=== PATIENT | female | born 1950 | race Caucasian/White ===

== ENCOUNTER 2018-08-26 13:55 | Observation (INO) ==
--- NOTE | 2018-08-26 09:05 | Discharge Summary ---
<Laura Quinones - Last Filed: 08/26/18 09:10> Orders not resulted at time of discharge: Pending orders 08/26/18 01:00 XR knee RT 1-2V [XR] Routine Hemoglobin and Hematocrit [HEME] Routine Date of Encounter: 08/26/18 - Hospital Course Hospital course: Ms. Michele is a 67 year old female - Time Spent with Patient Total time spent providing and/or coordinating discharge services: - Discharge Medications Prescriptions: New Aspirin Enteric Coated [Aspirin EC] 325 mg PO BID 10 Days #20 tablet. Docusate Sodium [Colace] 100 mg PO BID 5 Days #10 capsule HYDROcodone BIT/Homatropine [Hycodan] 5 mg PO Q6H PRN 5 Days #20 tablet PRN Reason: Severe Pain Continued predniSONE [PredniSONE] 10 mg PO DAILY Folic Acid 1 mg PO DAILY Omeprazole [PriLOSEC] 20 mg PO DAILY Lisinopril [Zestril] 10 mg PO DAILY Cholecalciferol (D-3) [Vitamin D] 1,000 unit PO DAILY Sulfasalazine [Azulfidine] 500 mg PO BID Discontinued Oxaprozin [Daypro] 600 mg PO BID Home Medications: Cholecalciferol (D-3) [Vitamin D] 1,000 unit PO DAILY 04/06/16 [History] Folic Acid 1 mg PO DAILY 04/06/16 [History] Lisinopril [Zestril] 10 mg PO DAILY 04/06/16 [History] Omeprazole [PriLOSEC] 20 mg PO DAILY 04/06/16 [History] predniSONE [PredniSONE] 10 mg PO DAILY 04/06/16 [History] Aspirin Enteric Coated [Aspirin EC] 325 mg PO BID 10 Days #20 tablet. 08/26/18 [Rx] Docusate Sodium [Colace] 100 mg PO BID 5 Days #10 capsule 08/26/18 [Rx] Sulfasalazine [Azulfidine] 500 mg PO BID 08/26/18 [History] HYDROcodone BIT/Homatropine [Hycodan] 5 mg PO Q6H PRN 5 Days #20 tablet 08/29/18 [Rx] Allergies/Adverse Reactions: Allergy/AdvReac Type Severity Reaction Status Date / Time Hydroxychloroquine Allergy Itching Verified 08/26/18 16:35 oxycodone [From Percocet] AdvReac Itching Verified 08/26/18 16:35 Primary care physician: Florian Garza MD - Patient Status Disposition: Home, Self-Care Condition: Good - Ambulatory Orders Ambulatory Orders: Renal Function Panel [CHEM] Time Frame: 1 Week, Facility: [facility], Location: Lab Renal Function Panel [CHEM] Time Frame: 6 Weeks, Facility: [facility], Location: Lab - Discharge Instructions Follow Up With: Florian Garza MD [Primary Care Provider] - <Laura Salazar - Last Filed: 08/29/18 13:37> - NOTES TO OUTPATIENT PROVIDER Notes to Outpatient Provider: Will repeat BMP in 1 week and 6 weeks. Follow up with Nephrology in 6 weeks. AVOID NSAIDs. Follow up with rheumatology for RA management Orders not resulted at time of discharge: Pending orders 08/26/18 01:00 XR knee RT 1-2V [XR] Routine Hemoglobin and Hematocrit [HEME] Routine Date of Encounter: 08/29/18 Time of Encounter: 11:45 - Discharge Diagnosis (1) Status post total right knee replacement Priority: Primary Status: Acute (2) Osteoarthritis of right knee Priority: Primary Status: Chronic Qualifiers: Osteoarthritis type: unspecified Qualified Code(s): M17.11 - Unilateral primary osteoarthritis, right knee (3) CKD (chronic kidney disease) Priority: Secondary Status: Chronic Qualifiers: Chronic kidney disease stage: unspecified stage Qualified Code(s): N18.9 - Chronic kidney disease, unspecified (4) HTN (hypertension) Priority: Secondary Status: Chronic Qualifiers: Hypertension type: unspecified Qualified Code(s): I10 - Essential (primary) hypertension (5) Rheumatoid arthritis Priority: Secondary Status: Chronic Qualifiers: Rheumatoid arthritis location: unspecified site Qualified Code(s): M05.9 - Rheumatoid arthritis with rheumatoid factor, unspecified (6) GERD (gastroesophageal reflux disease) Priority: Secondary Status: Chronic Qualifiers: Esophagitis presence: esophagitis presence not specified Qualified Code(s): K21.9 - Gastro-esophageal reflux disease without esophagitis (7) Obesity (BMI 30.0-34.9) Priority: Secondary Status: Chronic - Hospital Course Hospital course: Ms. Michele is a 67 year old female status post right TKR 7/15/19 with medical history of CKD, HTN, RA, GERD, obesity. She developed SHANNEN on CKD during admission likely worsened by postoperative anemia. Nephrology was consulted with recommendations for strict I&Os and to stop NSAIDs. She did receive 1 unit RBC transfusion and labs improved today. She is stable for discharge home at this time. She will have repeat BMP in 1 week and [facility] She will also have follow up with rheumatology as she needs to stop her daypro. She will also follow up with [facility] office next week for reevaluation of the knee. PCR - POD#3 s/p right TKR 08/26/18 Patient seen at bedside, without complaints. A&O x 3 Afebrile, vital signs stable. dressings c/d/i with minimal bleeding noted. no calf tenderness to palpation. good dorsiflexion of foot. Labs reviewed. H/H -8.2/25.8, improved, asymptomatic. received 1 unit RBC transfusion on 08/28. CKD - appreciate nephrology consult and recommendations. strict I/O, avoid nephrotoxins, renal dose medications. Pain control: adequate Participating in PT. All questions and concerns addressed. Educated on use of incentive spirometer. Encouraged ambulation and proper hydration. Patient educated on post-operative restrictions and post-operative care. Assessment and plan: Continue with postoperative care Discharge plan: Home, plan for outpatient therapy, DC today - Time Spent with Patient Total time spent providing and/or coordinating discharge services: Date of admission: 08/26/18 Primary care physician: Florian Garza MD Consults: 08/26/18 20:30 Consult to Nutrition [CONS] Routine Comment: Consulting Provider: NUTRITION Reason for Dietary Consult: Other Other:: Proper nutrition to facilitate wound healing Consult to Orthopedic Navigator [CONS] [CONS] Routine Consult to Physical Therapy [CONS] Routine Comment: Evaluate, develop and impliment POC Reason for Consult: post knee surgery Does patient have active BEDREST order?: No Is patient medically & hemodynamically stable?: Yes Consult to Chief Talent Officer [CONS] Routine Reason for SW Consult: post op joint replacement RT Post Op Consult [CONS] Routine 08/27/18 08:51 Consult to Nephrology [CONS] Routine Consulting Provider: [facility] [place]/JOHANNA/NOAH/MIKEY Reason for Consult: h/o CKD, postop monitoring Time Notified: 08:52 Call Completed: Yes 08/28/18 12:50 Consult to Nephrology [CONS] Routine Consulting Provider: Marc Pyle Reason for Consult: SHANNEN on CKD Time Notified: 12:51 Call Completed: Yes Labs on day of discharge: Short CBC 08/29/18 Range/Units 00:51 Hgb 8.2 L (11.5-15.4) g/dL Hct 25.8 L (35.3-44.9) % BMP 08/29/18 Range/Units 06:47 Sodium 144 (136-145) mEq/L Potassium 4.2 (3.5-5.1) mEq/L Chloride 109 H (98-107) mEq/L Carbon Dioxide 27 (23-29) mEq/L BUN 25 H (8-23) mg/dL Creatinine 1.32 H (0.60-1.20) mg/dL Glucose 90 (70-105) mg/dL Calcium 8.7 (8.6-10.3) mg/dL Urine 08/29/18 Range/Units 11:59 Urine Color Yellow (Yellow) Urine Clarity Clear (Clear) Urine pH 6.0 (5.0-8.0) pH Units Ur Specific [place] 1.011 (1.010-1.025) Urine Protein Negative (Neg-Trace) mg/dL Urine Glucose (UA) Normal (Normal) mg/dL - Impressions 08/26/18 20:30 Consult to Nutrition [CONS] Routine Comment: Consulting Provider: NUTRITION Reason for Dietary Consult: Other Other:: Proper nutrition to facilitate wound healing Consult to Orthopedic Navigator [CONS] [CONS] Routine Consult to Physical Therapy [CONS] Routine Comment: Evaluate, develop and impliment POC Reason for Consult: post knee surgery Does patient have active BEDREST order?: No Is patient medically & hemodynamically stable?: Yes Consult to Chief Talent Officer [CONS] Routine Reason for SW Consult: post op joint replacement RT Post Op Consult [CONS] Routine 08/27/18 08:51 Consult to Nephrology [CONS] Routine Consulting Provider: Marc Pyle Reason for Consult: h/o CKD, postop monitoring Time Notified: 08:52 Call Completed: Yes 08/28/18 12:50 Consult to Nephrology [CONS] Routine Consulting Provider: Marc Rabago/JOHANNA/NOAH/MIKEY Reason for Consult: SHANNEN on CKD Time Notified: 12:51 Call Completed: Yes - Patient Status Functional capacity at discharge: uses cane/walker Overall status at discharge: patient is progressing back to baseline - Diet and Activity Activity: ambulate only with your walker, as per physical therapy Diet: advance to your usual diet
[~2018-08-26 13:55] MED LIST: Ropivacaine/PF 0.5% 24.62 ML, EPINEPHrine 0.25 MG, Ketorolac 15 MG, Water for inj. (ste... IR ONE
--- NOTE | 2018-08-26 14:21 | History & Physical Report ---
Date of Encounter: 08/26/18 Time of Encounter: 14:20 24 Hour HP Update - Instructions Instructions: If the History and Physical is less than 30 days old and was completed prior to A.M. admission and or procedure and has NOT been updated on calendar day of procedure please complete this update prior to performing procedure. - Update Patient reports changes in Medical Condition: No Changes in examination, assessment, or condition: No Changes in Medication: No Preop tests/diagnostics Reviewed: Yes Surgery Remains Indicated: Yes Consent for Planned Operative Procedure(s) Verified: Yes - Pre-Operative Checklist Preoperative Checklist Indicated: No Prophylactic Antibiotic Ordered: Yes Is VTE Prophylaxis Indicated?: Yes
[2018-08-26] MEDS ORDERED: CeFAZolin Syr 2,000MG/20 ML 2,000 MG/20 ML SYRINGE IVPB ONE (14:24)
[2018-08-26] MEDS ORDERED: Ringers Solution, Lactated 1,000 ML IVC SCH (14:30)
--- NOTE | 2018-08-26 14:30 | Anesthesia Evaluation PreOp ---
Date of Encounter: 08/26/18 Time of Encounter: 14:28 - Past History Planned Operation: RIGHT TKA Cardiac History: HTN Pulmonary History: Denies Any Significant HX HEALTHCARE ANALYST History: Denies Any Significant HX Other Medical History: Renal (CKD3), GERD, Other (RHEUMATOID ARTHRITIS, ANEMIA) Anesthesia History: No Prior Anesthetic Complications, Past Anesthesia Alcohol Use: none Drug use: none Medications and Allergies Cholecalciferol (D-3) [Vitamin D] 1,000 unit PO DAILY 04/06/16 [History] Folic Acid 1 mg PO DAILY 04/06/16 [History] Lisinopril [Zestril] 10 mg PO DAILY 04/06/16 [History] Omeprazole [PriLOSEC] 20 mg PO DAILY 04/06/16 [History] Oxaprozin [Daypro] 600 mg PO BID 04/06/16 [History] Tramadol HCl [Ultram] 50 mg PO BID PRN 04/06/16 [History] predniSONE [PredniSONE] 10 mg PO DAILY 04/06/16 [History] sulfaSALAzine [Sulfazine] 500 mg PO BID 04/06/16 [History] Aspirin Enteric Coated [Aspirin EC] 325 mg PO BID 10 Days #20 tablet. 08/26/18 [Rx] Docusate Sodium [Colace] 100 mg PO BID 5 Days #10 capsule 08/26/18 [Rx] HYDROcodone BIT/Homatropine [Hycodan] 1 mg PO Q6HR 5 Days #20 tablet 08/26/18 [Rx] Allergy/AdvReac Type Severity Reaction Status Date / Time Hydroxychloroquine Allergy Itching Verified 08/26/18 14:23 acetaminophen [From Percocet] AdvReac Itching Verified 08/26/18 14:23 oxycodone [From Percocet] AdvReac Itching Verified 08/26/18 14:23 - Meds/Allergy Pre-op Review Medications Reviewed: Yes Allergies Reviewed: Yes Beta Blockers on Current Med List: No Anesthesia Exam REVIEWED Weight: 76 KG - BMI 32 NPO (# of Hours): 8 - HEENT Mallampati: I Teeth: Edentulous Denture Type: Upper: Complete, Lower: Complete - Cardiac Rhythm: Regular - Pulmonary Breath Sounds: bilateral Clear Anesthesia Assess/Plan ASA Score: 3 Anesthetic Plan: Regional Nerve Block, Spinal Monitoring Plan: Standard Monitors Recovery Plan: PACU
[2018-08-26] MEDS ORDERED: Acetaminophen IV 1,000 MG/100 ML INFUS..BTL IVPB ONE (14:32)
[2018-08-26] MEDS ORDERED: traMADol 50 MG TABLET PO ONE (14:32)
[2018-08-26] MEDS ORDERED: *HR* Promethazine 25 MG/ML VIAL IVP PRN ×2 (14:37→20:30)
[2018-08-26] MEDS ORDERED: *HR* HYDROmorphone (PF) 1 MG/ML SYRINGE IVP PRN (14:37)
[2018-08-26] MEDS ORDERED: *HR* Midazolam HCl 2 MG/2 ML VIAL ONE ×2 (15:44→16:19)
[2018-08-26] MEDS ORDERED: *HR* FentaNYL (PF) 100 MCG/2 ML VIAL ONE ×2 (15:44→16:19)
[2018-08-26] MEDS ORDERED: Propofol 500 MG/50 ML INFUS..BTL ONE (15:47)
[2018-08-26] MEDS ORDERED: ROPIVACAINE/PF/NS 0.25% 1 EACH SYRINGE INTRAART ONE (15:59)
[2018-08-26] MEDS ORDERED: Lidocaine -MPF 1% 5 ML AMPUL ONE (16:19)
[2018-08-26] MEDS ORDERED: Ethanol\\Acetic Acid\\Na Ace\\Ben 1,000 ML IRRIG.SOLN IR ONE (16:39)
--- NOTE | 2018-08-26 16:51 | Anesthesia Procedures ---
Date of Encounter: 08/26/18 Time of Encounter: 16:25 Procedures: Anesthesia - Epidural/Spinal Patient ID/Chart reviewed: Yes Patient examined: Yes Consent Obtained: Yes Supplemental Oxygen: Nasal Cannula Supplemental Oxygen Rate (L/min): 4 Sedation: Versed (mg): 1 Sedation: Fentanyl (mcg): 50 Site Prep: Aseptic Technique, Sterile prep and drape, Povidone-Iodine 1% Patient position: upright Local Anesthetic: Lidocaine 1% Amount of Local Anesthetic used: 3 Interspace Used: L3-L4 Blood: No CSF: Yes Paresthesia: No Spinal Needle Gauge: 25 (pencan) Spinal Dose: Bupivicaine 0.5% 2ml Procedure: Intrathecal dose administered 2nd pass in upright position. 1st pass could not pass to intrathecal space. Successful at L3-L4. CSF noted on aspiration. VSS throughout. Vitals + FHT's: Vital Signs Temperature 98.9 F 08/26/18 14:36 Pulse Rate 107 08/26/18 14:36 Respiratory Rate 17 08/26/18 14:36 Blood Pressure 176/76 08/26/18 14:36 O2 Sat by Pulse Oximetry 99 08/26/18 14:36 Temperature 98.9 F 08/26/18 14:36 Pulse Rate 96 08/26/18 16:05 Respiratory Rate 18 08/26/18 16:05 Blood Pressure 140/75 08/26/18 16:05 O2 Sat by Pulse Oximetry 98 08/26/18 16:05 - Nerve Block Procedure Date: 08/26/18 Time: 16:35 Allergies/Adv Reactions: hydroxychloroquine, acetaminophen, oxycodone Pre-op Diagnosis: Right knee osteoarthritis Surgical Procedure: right total knee arthroplasty Checklist: Correct Patient Identifier, Correct procedure, History checked Correct side: Right Blood Thinner: No Monitor Applied: EKG, BP, Pulse Oximetry Supplemental Oxygen via Nasal Cannula (L/min): 4 Indication: Post Op Analgesia Pre-op Neuro Deficits: No Block Type: Other (adductor canal ) Catheter placed: No Sterile Technique: Yes Ultrasound used: Yes Anatomy identified: Yes Visual spread of Local: Yes Neuro Stimulation: No Blood on Needle Aspiration: No Smooth Injection of Local: Yes Pain with Injection of Local: No Prep: Chlorhexadine Needle: 22 x 50 mm Stimuplex Local: Ropivacaine (0.25% bupivicaine ) Volume (cc): 10 Number of Attempts: 1 Complications: None/effective block Vitals: Vital Signs Temperature 98.9 F 08/26/18 14:36 Pulse Rate 107 08/26/18 14:36 Respiratory Rate 17 08/26/18 14:36 Blood Pressure 176/76 08/26/18 14:36 O2 Sat by Pulse Oximetry 99 08/26/18 14:36 Temperature 98.9 F 08/26/18 14:36 Pulse Rate 96 08/26/18 16:05 Respiratory Rate 18 08/26/18 16:05 Blood Pressure 140/75 08/26/18 16:05 O2 Sat by Pulse Oximetry 98 08/26/18 16:05
[2018-08-26] MEDS ORDERED: Tranexamic Acid 1,000 MG/10 ML VIAL ONE (17:12)
[2018-08-26] MEDS ORDERED: Dexamethasone 4 MG/ML VIAL ONE (17:46)
[2018-08-26] MEDS ORDERED: Ondansetron 4 MG/2 ML VIAL ONE (17:47)
--- NOTE | 2018-08-26 17:49 | Orthopedic Operative Note ---
Date of procedure: 08/26/18 Pre-op diagnosis: Right knee arthritis Post-op diagnosis: same Procedure: Procedure: Right robotic-assisted Total knee replacement Estimated blood loss: 200 cc Hardware: Metal and polyethylene replacement. [place] Femur: 3 Tibia: 2 TS insert: 11 Patella: 36 Exam Under anesthesia: 14 degree flexion contracture 14 degree varus as calculated by the robot full flexion and no instability Procedural Notes: Grade 4 arthritic changes all 3 compartments. Operative procedure: The patient was brought to the operating room and placed on the operating room table. After general anesthesia was administered the operative knee was examined. Findings were noted in the exam under anesthesia. The operative extremity was prepped and draped in sterile surgical fashion. The patient received IV antibiotics prior to skin incision. A standard midline incision was made centered over the patella. The incision was made through the skin and subcutaneous tissue. A medial parapatellar tendon approach was performed. Care was taken to preserve tissue along the medial aspect of the patella. And to protect the patella tendon. The deep MCL was released off the medial tibia. The infra patella fat pad was excised. The patella was everted and cut was made at the level of the insertion of the quadriceps and patella tendon. The patella was sized the guide was seated and the lug holes are drilled. Knee was brought into flexion. Patient noted to have grade 4 arthritic changes all 3 compartments. Steinmann pins were placed in the tibia and the femur for the tibial and femoral arrays respectively. Checkpoints were also placed in the tibia and the femur for calculation purposes. The knee including the femur and the tibial registered. Osteophytes, ACL and PCL were excised at this point. Extension and flexion were assessed with a valgus stress components were adjusted on the computer to balance the knee. Femoral cuts were made first with robotic assistance, these included the anterior cut posterior cuts chamfer cuts. Tibial cut was then performed with robotic assistance as well. Bone fragments were removed, as well as the medial and lateral meniscus. The size 3 femoral guide was seated box cut was made lug holes are drilled. The size 2 tibial tray was seated and prepared with the fin cutter. Trial reduction with the 11 TS Bernadine revealed extension of 0 degree and 2 degrees varus full flexion. No varus valgus instability. Trial reduction revealed excellent patella tracking. All trial components were removed all bony surfaces were irrigated. The Tibia was seated followed by the femur, The selected Bernadine size was seated and secured patella. Patient had similar findings for motion and stability. The knee was closed by the PA. The knee was then irrigated out with 2 L of pulse irrigation. The extensor mechanism was closed with #2 FiberWire suture and #2 PDS suture. The subcutaneous tissue was then irrigated and closed deep with #1 PDS suture superficially with 0 PDS suture and skin was closed with zip tie The patient was then placed in a sterile dressing and a postoperative brace extubated and transferred to recovery room in stable condition. Anesthesia: spinal Surgeon: Danyel Chavez Was there an assistant professor sculpture present: Yes Photolith Operator: Laura Quinones Estimated blood loss (cc): 200 Condition: stable Disposition: PACU
--- NOTE | 2018-08-26 19:04 | Anesthesia Evaluation Post Op ---
Date of Encounter: 08/26/18 Time of Encounter: 19:15 - Vital Signs Vital Signs: Vital Signs/O2 Sat/Glucose, Most Current Temp Pulse Resp BP Pulse Ox 08/26/18 19:02 84 18 146/68 98 08/26/18 18:52 81 16 131/76 95 08/26/18 18:42 97.6 F 88 16 136/83 98 08/26/18 16:05 96 18 140/75 98 - Lungs Lungs: Clear Ascult./Percussion - Airway Airway: Non-obstructed - Cardiovascular Regular Rate - Mental Status Mental Status: Alert & Oriented, Answers Appropriately - Pain Pain Scale: 0 - Nausea Vomiting Nausea Vomiting: Not Present - Hydration Hydration: Ice chips - Discharge PostOp Status: Transfer Patient to floor (moving lower extremities)
[2018-08-26 19:21] LABS: Hematocrit 29.5 % (35.3-44.9); Hemoglobin 9.2 g/dL (11.5-15.4)
[2018-08-26] MEDS ORDERED: traMADol 50 MG TABLET PO PRN (20:30)
[2018-08-26] MEDS ORDERED: HYDROcodone BIT/Homatropine 5 MG TABLET PO PRN (20:30)
[2018-08-26] MEDS ORDERED: *HR* HYDROcodone/Acet 10/325 mg TABLET PO PRN (20:30)
[2018-08-26] MEDS ORDERED: MOM Conc 10 ML UD.LIQ PO PRN (20:30)
[2018-08-26] MEDS ORDERED: Sennosides 8.6 MG TABLET PO PRN (20:30)
[2018-08-26] MEDS ORDERED: Ondansetron 4 MG/2 ML VIAL IVP PRN (20:30)
[2018-08-26] MEDS ORDERED: Temazepam 15 MG CAPSULE PO PRN (20:30)
[2018-08-26] MEDS ORDERED: Naloxone 0.4 MG/ML INJ IVP PRN (20:30)
[2018-08-26] MEDS: Ringers Solution, Lactated 1,000 ML IVC SCH (20:30)
[2018-08-26] MEDS ORDERED: OXAPROZIN 600 MG PO SCH (21:00)
[2018-08-26] MEDS: *HR* Enoxaparin 30 MG/0.3 ML SYRINGE SQ SCH (23:18)
[2018-08-26] MEDS: Gabapentin 300 MG CAPSULE PO SCH (23:19)
[2018-08-26] MEDS: sulfaSALAzine 500 MG TABLET PO SCH (23:19)
[2018-08-26] MEDS: Ascorbic Acid 500 MG TABLET PO SCH (23:37)
[2018-08-27] MEDS: Gabapentin 300 MG CAPSULE PO SCH ×3 (03:02→14:40)
[2018-08-27] MEDS: *HR* Enoxaparin 30 MG/0.3 ML SYRINGE SQ SCH (06:03)
--- NOTE | 2018-08-27 06:19 | Orthopedics Progress Note ---
Date of Encounter: 08/27/18 Time of Encounter: 06:18 - Assessment and Plan (1) Acute blood loss anemia Current Visit: Yes Status: Acute Subjective Interval history: Patient was seen this morning doing well without complaints. Afebrile vital signs stable. Operative extremity: Neurovascularly intact Dressing clean dry and intact Calves nontender Assessment and plan: Continue with postoperative care Hemoglobin 9.2 Objective Vital signs: Vital Signs Temp Pulse Pulse Resp BP Pulse Ox 08/27/18 04:48 98.5 F 76 17 135/71 98 08/26/18 23:46 97.9 F 74 15 153/75 93 08/26/18 22:35 98.5 F 76 16 148/88 95 08/26/18 21:40 98.8 F 72 14 128/86 95 08/26/18 20:40 98.3 F 79 14 130/76 95 08/26/18 20:14 97.6 F 70 17 132/78 97 08/26/18 20:10 98.5 F 74 16 140/82 95 08/26/18 19:35 98.4 F 78 16 135/78 95 08/26/18 19:30 76 08/26/18 19:22 98.1 F 68 16 131/65 97 08/26/18 19:12 98.8 F 79 18 131/66 97 08/26/18 19:02 84 18 146/68 98 08/26/18 18:52 81 16 131/76 95 08/26/18 18:42 97.6 F 88 16 136/83 98 08/26/18 16:05 96 18 140/75 98 08/26/18 14:36 98.9 F 107 17 176/76 99 Intake and Output 08/26/18 08/26/18 08/27/18 15:59 23:59 07:59 Intake Total 100 / 100 Output Total 200 / 200 Balance -100 / -100 Intake: IV Fluids 100 / 100 Ancef 2,000 MG In 0.9 % Sodium 100 / 100 Chloride 100 ML @ 200 mls/hr IVPB Q8H [facility] Rx#:[id number] Output: Estimated Blood Loss 200 / 200 Other: Weight 76.204 kg 76.1 kg Patient Weight 08/27/18 23:59 Weight 76.1 kg - Labs CBC & BMP: 08/26/18 18:58 Labs: Abnormal lab results Hgb 9.2 g/dL (11.5-15.4) L 08/26/18 18:58 Hct 29.5 % (35.3-44.9) L 08/26/18 18:58 Consult Discharge Plan - Plan Referrals: Florian Garza MD [Primary Care Provider] - Prescriptions: Aspirin Enteric Coated [Aspirin EC] 325 mg PO BID 10 Days #20 tablet. Docusate Sodium [Colace] 100 mg PO BID 5 Days #10 capsule HYDROcodone BIT/Homatropine [Hycodan] 1 mg PO Q6HR 5 Days #20 tablet
[2018-08-27 07:18] LABS: Hematocrit 25.5 % (35.3-44.9); Hemoglobin 8.1 g/dL (11.5-15.4); Immature Granulocytes % 0.3 % (0-4); Lymphocytes # 0.8 K/mcL (0.6-4.6); Lymphocytes % 7.8 %; Mean Corpuscular HGB Conc 31.8 g/dL (31.6-35.5); Mean Corpuscular Hemoglobin 29.5 pg (28.0-33.3); Mean Corpuscular Volume 92.7 fL (83.0-100.0); Mean Platelet Volume 11.2 fL (9.4-12.4); Monocytes # 0.8 K/mcL (0.0-1.3); Monocytes % 7.6 %; Neutrophils # 8.4 K/mcL (1.6-8.9); Platelet Count 187 K/mcL (140-400); Red Blood Count 2.75 M/mcL (3.82-4.97); Segmented Neutrophils % 84.3 %; White Blood Count 9.9 K/mcL (4.3-11.1)
[2018-08-27 07:41] LABS: Calcium 8.5 mg/dL (8.6-10.3); Potassium 4.4 mEq/L (3.5-5.1)
[2018-08-27] MEDS: predniSONE 10 MG TABLET PO SCH (09:41)
[2018-08-27] MEDS: Ascorbic Acid 500 MG TABLET PO SCH ×2 (09:41→17:43)
[2018-08-27] MEDS: Cholecalciferol (D-3) 1,000 UNIT (25MCG) TABLET PO SCH (09:41)
[2018-08-27] MEDS: sulfaSALAzine 500 MG TABLET PO SCH (09:41)
[2018-08-27] MEDS: Folic Acid 1 MG TABLET PO SCH (09:41)
[2018-08-27] MEDS: Multivit/Ca/Min/Fe/FA 1 TAB TABLET PO SCH (09:41)
--- NOTE | 2018-08-27 13:32 | Nephrology Consult Note ---
Date of Encounter: 08/27/18 Time of Encounter: 13:52 Assessment and Plan (1) CKD (chronic kidney disease) Current Visit: Yes Status: Chronic Is a patient of Dr. Wadsworth in the office. Is currently at baseline. GFR 42 today. Strict I/O Avoid nephrotoxins and renal dose. Qualifiers: Chronic kidney disease stage: unspecified stage Qualified Code(s): N18.9 - Chronic kidney disease, unspecified (2) Status post total right knee replacement Current Visit: Yes Status: Acute Per Ortho. (3) HTN (hypertension) Current Visit: Yes Status: Chronic 101/59, stable. Qualifiers: Hypertension type: unspecified Qualified Code(s): I10 - Essential (primary) hypertension (4) Rheumatoid arthritis Current Visit: Yes Status: Chronic H/X of. Qualifiers: Rheumatoid arthritis location: unspecified site Qualified Code(s): M05.9 - Rheumatoid arthritis with rheumatoid factor, unspecified History of Present Illness - Reason for Consult Consult date: 08/27/18 Acute Kidney Injury, Chronic Kidney Disease Requesting physician: Danyel Chavez - Chief Complaint SHANNEN vs CKD - History of Present Illness Ms. Michele is a 67 year old female who had right knee replacement on 08/26/18. PMH: RA, HTN, and CKD 3. She is seen in the office by Dr. Wadsworth. [facility] were consulted to manage CKD in the hospital. Denies nausea, vomiting, diarrhea. Denies chest pain or shortness of breath. Denies hematuria. No need for any additional workup at this time. FH mother was on HD. Lives at home alone. Denies etoh, illicit drug use or tobacco. Was taking Naproxen 500 mg PO BID, instructed patient to stop. Past Med Surg Social Fam HX - Past Medical History Medical history: arthritis, GERD, hypertension, SVT Psychiatric history: no psych history - Past Surgical History Surgical History: appendectomy, other Additional surgical history: left foot bunionectomy, ovarian cyst - Social History Smoking Status: Never smoker Smokeless Tobacco Status: No Alcohol use: none Drug use: none Medications and Allergies Cholecalciferol (D-3) [Vitamin D] 1,000 unit PO DAILY 04/06/16 [History] Folic Acid 1 mg PO DAILY 04/06/16 [History] Lisinopril [Zestril] 10 mg PO DAILY 04/06/16 [History] Omeprazole [PriLOSEC] 20 mg PO DAILY 04/06/16 [History] Oxaprozin [Daypro] 600 mg PO BID 04/06/16 [History] predniSONE [PredniSONE] 10 mg PO DAILY 04/06/16 [History] Aspirin Enteric Coated [Aspirin EC] 325 mg PO BID 10 Days #20 tablet. 08/26/18 [Rx] Docusate Sodium [Colace] 100 mg PO BID 5 Days #10 capsule 08/26/18 [Rx] HYDROcodone BIT/Homatropine [Hycodan] 1 mg PO Q6HR 5 Days #20 tablet 08/26/18 [Rx] Sulfasalazine [Azulfidine] 500 mg PO BID 08/26/18 [History] Allergy/AdvReac Type Severity Reaction Status Date / Time Hydroxychloroquine Allergy Itching Verified 08/26/18 16:35 oxycodone [From Percocet] AdvReac Itching Verified 08/26/18 16:35 Review of Systems All Systems review (narrative): The remainder of the systems are negative. Constitutional: no chills, no fatigue, no fever(s) Cardiovascular: no chest pain, no dyspnea, no edema Respiratory: no cough, no dyspnea Gastrointestinal: no change in bowel habits, no diarrhea, no nausea, no vomiting Genitourinary Female: no hematuria, no urinary frequency, no urinary urgency Exam - Vital Signs Vital signs: Initial Vital Signs Temp Pulse Resp BP Pulse Ox 98.9 F 107 17 176/76 99 08/26/18 14:36 08/26/18 14:36 08/26/18 14:36 08/26/18 14:36 08/26/18 14:36 Vital Signs - Last 8 Hours Temp Pulse Resp BP Pulse Ox 08/27/18 11:21 97.6 F 72 15 101/59 99 08/27/18 07:01 97.7 F 75 15 132/66 97 Intake and Output 08/26/18 08/27/18 08/27/18 23:59 07:59 15:59 Intake Total 100 / 100 120 / 120 Output Total 200 / 200 200 / 200 Balance -100 / -100 -80 / -80 Intake: IV Fluids 100 / 100 Ancef 2,000 MG In 0.9 % Sodium 100 / 100 Chloride 100 ML @ 200 mls/hr IVPB Q8H [facility] Rx#:[id number] Oral 120 / 120 Output: Urine 200 / 200 Estimated Blood Loss 200 / 200 Other: Meal Breakfast Percent of Meal Consumed 100% # Voids 1 Weight 76.1 kg Patient Weight 08/27/18 23:59 Weight 76.1 kg - General Appearance General appearance: well-developed, well-nourished EENT: ATNC, hearing intact, vision intact Neck: supple Respiratory: clear Cardiology: no edema, normal S1, normal S2 Gastrointestinal: normoactive bowel sounds, no tenderness, no guarding Integumentary: no rash, warm and dry Neurologic: alert and oriented x3 Musculoskeletal: no deformities, no erythema Psychiatric: mood/affect appropriate, cooperative Results - Lab Results 08/27/18 13:28 08/27/18 06:40 Most recent lab results 08/27/18 06:40 Calcium 8.5 L Consult Discharge Plan - Plan Referrals: Florian Garza MD [Primary Care Provider] - Prescriptions: Aspirin Enteric Coated [Aspirin EC] 325 mg PO BID 10 Days #20 tablet. Docusate Sodium [Colace] 100 mg PO BID 5 Days #10 capsule HYDROcodone BIT/Homatropine [Hycodan] 1 mg PO Q6HR 5 Days #20 tablet
[2018-08-27 13:40] LABS: Hematocrit 26.9 % (35.3-44.9); Hemoglobin 8.5 g/dL (11.5-15.4)
--- NOTE | 2018-08-27 14:15 | Event Note ---
Date of Encounter: 08/27/18 Time of Encounter: 12:20 PCR - POD#1 s/p right TKR 08/26/18 Patient seen at bedside, without complaints. A&O x 3 Afebrile, vital signs stable. dressings c/d/i with minimal bleeding noted. no calf tenderness to palpation. good dorsiflexion of foot. Labs reviewed. H/H - 8.1 this morning, repeat was 8.5, will continue to monitor. asymptomatic CKD - appreciate nephrology consult and recommendations. strict I/O, avoid nephrotoxins, renal dose medications Pain control: adequate Participating in PT. All questions and concerns addressed. Educated on use of incentive spirometer. Encouraged ambulation and proper hydration. Patient educated on post-operative restrictions and post-operative care. Assessment and plan: Continue with postoperative care Discharge plan: Home, plan for outpatient therapy upon discharge possibly tomorrow
[2018-08-28] MEDS: sulfaSALAzine 500 MG TABLET PO SCH ×3 (00:16→21:40)
[2018-08-28] MEDS: Gabapentin 300 MG CAPSULE PO SCH ×4 (00:16→21:40)
[2018-08-28 01:12] LABS: Basophils % 0.2 %; Eosinophils # 0.1 K/mcL (0.0-0.6); Eosinophils % 0.7 %; Hematocrit 25.8 % (35.3-44.9); Hemoglobin 7.9 g/dL (11.5-15.4); Immature Granulocytes % 0.4 % (0-4); Lymphocytes # 1.9 K/mcL (0.6-4.6); Lymphocytes % 16.6 %; Mean Corpuscular HGB Conc 30.6 g/dL (31.6-35.5); Mean Corpuscular Hemoglobin 28.6 pg (28.0-33.3); Mean Corpuscular Volume 93.5 fL (83.0-100.0); Mean Platelet Volume 10.7 fL (9.4-12.4); Monocytes % 8.5 %; Neutrophils # 8.4 K/mcL (1.6-8.9); Platelet Count 203 K/mcL (140-400); Red Blood Count 2.76 M/mcL (3.82-4.97); Red Cell Distribution Width 18.6 % (11.5-14.5); Segmented Neutrophils % 73.6 %; White Blood Count 11.5 K/mcL (4.3-11.1)
[2018-08-28 01:25] LABS: Calcium 8.6 mg/dL (8.6-10.3); Potassium 4.2 mEq/L (3.5-5.1)
--- NOTE | 2018-08-28 06:37 | Orthopedics Progress Note ---
Date of Encounter: 08/28/18 Time of Encounter: 06:36 - Assessment and Plan (1) Acute blood loss anemia Current Visit: Yes Status: Acute Subjective Interval history: Patient was seen this morning doing well without complaints. Afebrile vital signs stable. Operative extremity: Neurovascularly intact Dressing clean dry and intact Calves nontender Assessment and plan: Continue with postoperative care Hemoglobin 7.9 Objective Vital signs: Vital Signs Temp Pulse Pulse Resp BP Pulse Ox 08/28/18 03:46 97.5 F L 89 17 155/74 92 08/28/18 01:47 75 08/28/18 00:20 98.4 F 91 17 113/83 99 08/27/18 19:20 98.7 F 97 17 126/76 96 08/27/18 15:50 97.9 F 78 18 106/57 94 08/27/18 11:21 97.6 F 72 15 101/59 99 08/27/18 07:01 97.7 F 75 15 132/66 97 Intake and Output 08/27/18 08/27/18 08/28/18 15:59 23:59 07:59 Intake Total 360 / 360 Output Total 200 / 200 Balance 160 / 160 Intake: Oral 360 / 360 Output: Urine 200 / 200 Other: Meal Lunch Percent of Meal Consumed 100% # Voids 1 Weight 82 kg Patient Weight 08/28/18 23:59 Weight 82 kg - Labs CBC & BMP: 08/28/18 00:53 08/28/18 00:53 Labs: Abnormal lab results WBC 11.5 K/mcL (4.3-11.1) H 08/28/18 00:53 RBC 2.76 M/mcL (3.82-4.97) L 08/28/18 00:53 Hgb 7.9 g/dL (11.5-15.4) L 08/28/18 00:53 Hct 25.8 % (35.3-44.9) L 08/28/18 00:53 MCHC 30.6 g/dL (31.6-35.5) L 08/28/18 00:53 RDW 18.6 % (11.5-14.5) H 08/28/18 00:53 BUN 32 mg/dL (8-23) H 08/28/18 00:53 Creatinine 1.86 mg/dL (0.60-1.20) H 08/28/18 00:53 Est GFR ( Amer) 33 (> 60) L 08/28/18 00:53 Est GFR (Non-Af Amer) 27 (> 60) L 08/28/18 00:53 Glucose 117 mg/dL (70-105) H 08/28/18 00:53 Calcium 8.5 mg/dL (8.6-10.3) L 08/27/18 06:40 Consult Discharge Plan - Plan Referrals: Florian Garza MD [Primary Care Provider] - Prescriptions: Aspirin Enteric Coated [Aspirin EC] 325 mg PO BID 10 Days #20 tablet. Docusate Sodium [Colace] 100 mg PO BID 5 Days #10 capsule HYDROcodone BIT/Homatropine [Hycodan] 1 mg PO Q6HR 5 Days #20 tablet
[2018-08-28] MEDS: *HR* Enoxaparin 30 MG/0.3 ML SYRINGE SQ SCH (07:22)
[2018-08-28] MEDS: predniSONE 10 MG TABLET PO SCH (08:47)
[2018-08-28] MEDS: Folic Acid 1 MG TABLET PO SCH (08:47)
[2018-08-28] MEDS: Multivit/Ca/Min/Fe/FA 1 TAB TABLET PO SCH (08:47)
[2018-08-28] MEDS: Ascorbic Acid 500 MG TABLET PO SCH ×2 (08:47→16:22)
[2018-08-28] MEDS: Cholecalciferol (D-3) 1,000 UNIT (25MCG) TABLET PO SCH (08:47)
[2018-08-28] MEDS: Ringers Solution, Lactated 1,000 ML IVC SCH ×2 (11:32→18:56)
--- NOTE | 2018-08-28 13:01 | Event Note ---
Date of Encounter: 08/28/18 Time of Encounter: 11:50 PCR - POD#2 s/p right TKR 08/26/18 Patient seen at bedside, without complaints. A&O x 3 Afebrile, vital signs stable. dressings c/d/i with minimal bleeding noted. no calf tenderness to palpation. good dorsiflexion of foot. Labs reviewed. H/H - 8.5 yesterday --> 7.9/25.8 today. She has been lightheaded. Will order 1 unit RBC transfusion. CKD - appreciate nephrology consult and recommendations. strict I/O, avoid nephrotoxins, renal dose medications. There was a change in her kidney function labs overnight, could be related to blood loss but reconsulted nephro for input. Spoke with Dr. Wadsworth who is agreeable with starting 1 unit RBC for now and then reassess. Pain control: adequate Participating in PT. All questions and concerns addressed. Educated on use of incentive spirometer. Encouraged ambulation and proper hydration. Patient educated on post-operative restrictions and post-operative care. Assessment and plan: Continue with postoperative care Discharge plan: Home, plan for outpatient therapy once medically stable.
--- NOTE | 2018-08-28 14:27 | Nephrology Progress Note ---
Date of Encounter: 08/28/18 Time of Encounter: 14:25 - Assessment and Plan (1) CKD (chronic kidney disease) Current Visit: Yes Status: Chronic Is a patient of Dr. Wadsworth in the office. Baseline appears to be 35-40. GFR 27 today likely related to blood loss, agree with 1 unit PRBC. Ua, urine sodium and creatinine ordered. Strict I/O Avoid nephrotoxins and renal dose. Qualifiers: Chronic kidney disease stage: unspecified stage Qualified Code(s): N18.9 - Chronic kidney disease, unspecified (2) Status post total right knee replacement Current Visit: Yes Status: Acute Per Ortho. (3) HTN (hypertension) Current Visit: Yes Status: Chronic 128/71, stable. Qualifiers: Hypertension type: unspecified Qualified Code(s): I10 - Essential (primary) hypertension (4) Rheumatoid arthritis Current Visit: Yes Status: Chronic H/X of. D/C Nsaids. Qualifiers: Rheumatoid arthritis location: unspecified site Qualified Code(s): M05.9 - Rheumatoid arthritis with rheumatoid factor, unspecified Subjective Principal diagnosis: right total knee Interval history: Pt seen and examined. Denies chest pain or shortness of breath. Denies nausea, vomiting, diarrhea. Objective - Vital Signs Vital signs: Vital Signs Temp Pulse Pulse Resp BP Pulse Ox 08/28/18 10:56 97.6 F 96 17 128/71 99 08/28/18 07:33 98.7 F 67 18 159/75 94 08/28/18 03:46 97.5 F L 89 17 155/74 92 08/28/18 01:47 75 08/28/18 00:20 98.4 F 91 17 113/83 99 08/27/18 19:20 98.7 F 97 17 126/76 96 08/27/18 15:50 97.9 F 78 18 106/57 94 Intake and Output 08/27/18 08/28/18 08/28/18 23:59 07:59 15:59 Intake Total 240 / 240 Balance 240 / 240 Intake: Oral 240 / 240 Other: Meal Breakfast Percent of Meal Consumed 100% # Voids 1 Weight 82 kg Patient Weight 08/28/18 23:59 Weight 82 kg - General Appearance General appearance: Present: well-developed, well-nourished EENT: Present: ATNC, hearing intact, vision intact Neck: Present: supple Respiratory: Present: clear Cardiology: Present: no edema, normal S1, normal S2 Gastrointestinal: Present: normoactive bowel sounds, no tenderness, no guarding Integumentary: Present: no rash, warm and dry Neurologic: Present: alert and oriented x3 Musculoskeletal: Present: no deformities, no erythema Psychiatric: Present: mood/affect appropriate, cooperative - Lab 08/28/18 00:53 08/28/18 00:53 Consult Discharge Plan - Plan Referrals: Florian Garza MD [Primary Care Provider] -
[2018-08-28] MEDS: 0.9 % Sodium Chloride 250 ML IVC SCH (18:56)
[2018-08-29] MEDS: 0.9 % Sodium Chloride 250 ML IVC SCH ×2 (00:32→10:18)
[2018-08-29 01:46] LABS: Hematocrit 25.8 % (35.3-44.9); Hemoglobin 8.2 g/dL (11.5-15.4)
[2018-08-29] MEDS: Ringers Solution, Lactated 1,000 ML IVC SCH (03:51)
[2018-08-29] MEDS: *HR* Enoxaparin 30 MG/0.3 ML SYRINGE SQ SCH (06:28)
--- NOTE | 2018-08-29 06:32 | Orthopedics Progress Note ---
Date of Encounter: 08/29/18 Time of Encounter: 06:32 - Assessment and Plan (1) Acute blood loss anemia Current Visit: Yes Status: Acute Subjective Principal diagnosis: right total knee Interval history: Patient was seen this morning doing well without complaints. Afebrile vital signs stable. Operative extremity: Neurovascularly intact Dressing clean dry and intact Calves nontender Assessment and plan: Continue with postoperative care Hemoglobin 8.2 Objective Vital signs: Vital Signs Temp Pulse Resp BP Pulse Ox 08/28/18 23:06 98.2 F 84 15 129/73 95 08/28/18 18:53 98.9 F 100 18 133/65 99 08/28/18 18:12 99.0 F 97 16 120/71 08/28/18 17:14 98.2 F 107 19 161/74 95 08/28/18 15:06 98.8 F 101 18 122/60 08/28/18 14:51 98.7 F 98 16 116/62 08/28/18 10:56 97.6 F 96 17 128/71 99 08/28/18 07:33 98.7 F 67 18 159/75 94 Intake and Output 08/28/18 08/28/18 08/29/18 15:59 23:59 07:59 Intake Total 240 / 830 590 / 830 1000 / 1000 Balance 240 / 830 590 / 830 1000 / 1000 Intake: IV Fluids 1000 / 1000 Lactated Ringers 1,000 ML @ 75 1000 / 1000 mls/hr IVC .[id number] [facility] Rx#: [id number] Oral 240 / 480 240 / 480 Blood Product 0 / 350 350 / 350 Rbcs Leuko Poor As-3 2nd Unit 0 / 350 350 / 350 [id number] Other: Meal Breakfast Dinner Percent of Meal Consumed 100% 95% # Voids 1 1 1 Weight 82.3 kg Patient Weight 08/29/18 23:59 Weight 82.3 kg - Labs CBC & BMP: 08/29/18 00:51 08/28/18 00:53 Labs: Abnormal lab results WBC 11.5 K/mcL (4.3-11.1) H 08/28/18 00:53 RBC 2.76 M/mcL (3.82-4.97) L 08/28/18 00:53 Hgb 8.2 g/dL (11.5-15.4) L 08/29/18 00:51 Hct 25.8 % (35.3-44.9) L 08/29/18 00:51 MCHC 30.6 g/dL (31.6-35.5) L 08/28/18 00:53 RDW 18.6 % (11.5-14.5) H 08/28/18 00:53 BUN 32 mg/dL (8-23) H 08/28/18 00:53 Creatinine 1.86 mg/dL (0.60-1.20) H 08/28/18 00:53 Est GFR ( Amer) 33 (> 60) L 08/28/18 00:53 Est GFR (Non-Af Amer) 27 (> 60) L 08/28/18 00:53 Glucose 117 mg/dL (70-105) H 08/28/18 00:53 Calcium 8.5 mg/dL (8.6-10.3) L 08/27/18 06:40 Crossmatch See Detail 08/13/18 13:30 Consult Discharge Plan - Plan Referrals: Florian Garza MD [Primary Care Provider] -
[2018-08-29 07:31] LABS: Calcium 8.7 mg/dL (8.6-10.3); Potassium 4.2 mEq/L (3.5-5.1)
[2018-08-29] MEDS: Multivit/Ca/Min/Fe/FA 1 TAB TABLET PO SCH (07:53)
[2018-08-29] MEDS: Folic Acid 1 MG TABLET PO SCH (07:53)
[2018-08-29] MEDS: Ascorbic Acid 500 MG TABLET PO SCH (07:53)
[2018-08-29] MEDS: sulfaSALAzine 500 MG TABLET PO SCH (07:53)
[2018-08-29] MEDS: Gabapentin 300 MG CAPSULE PO SCH (07:53)
[2018-08-29] MEDS: Cholecalciferol (D-3) 1,000 UNIT (25MCG) TABLET PO SCH (07:53)
[2018-08-29] MEDS: predniSONE 10 MG TABLET PO SCH (07:53)
[2018-08-29 10:53] VITALS: BP 120/64
[2018-08-29 12:21] LABS: Bilirubin,Urine Negative (Negative); Blood,Urine Negative (Negative); Clarity,Urine Clear (Clear); Color,Urine Yellow (Yellow); Glucose,Urine (UA) Normal (Normal); Ketones,Urine Negative (Negative); Leukocyte Esterase,Urine Negative (Negative); Nitrite,Urine Negative (Negative); Protein,Urine Negative (Neg-Trace); Specific Gravity,Urine 1.011 (1.010-1.025); Urobilinogen,Urine Normal (Normal)
[2018-08-29 12:54] LABS: Sodium, Urine 44.2 mEq/L
--- NOTE | 2018-08-29 12:59 | Nephrology Progress Note ---
Date of Encounter: 08/29/18 Time of Encounter: 12:55 - Assessment and Plan (1) CKD (chronic kidney disease) Current Visit: Yes Status: Chronic Is a patient of Dr. Wadsworth in the office. Baseline appears to be 35-40. GFR 40 today, improved. Ua, urine sodium and creatinine ordered. Strict I/O Avoid nephrotoxins and renal dose. Patient may go home from a renal standpoint. BMP in 7 days and 6 weeks (ordered). D/C NSAIDS F/U with her [employer] if NSAIDS can not be avoided. F/U with Dr. Wadsworth in 4-6 weeks. Qualifiers: Qualified Code(s): N18.9 - Chronic kidney disease, unspecified (2) Status post total right knee replacement Current Visit: Yes Status: Acute Per Ortho. (3) HTN (hypertension) Current Visit: Yes Status: Chronic 128/71, stable. Qualifiers: Qualified Code(s): I10 - Essential (primary) hypertension (4) Rheumatoid arthritis Current Visit: Yes Status: Chronic H/X of. D/C Nsaids. See above Qualifiers: Qualified Code(s): M05.9 - Rheumatoid arthritis with rheumatoid factor, unspecified Subjective Principal diagnosis: right total knee Interval history: Pt seen and examined. Denies chest pain or shortness of breath. Denies nausea, vomiting, diarrhea. Objective - Vital Signs Vital signs: Vital Signs Temp Pulse Resp BP Pulse Ox 08/29/18 10:51 98.5 F 97 14 120/64 98 08/29/18 07:10 97.8 F 86 16 154/73 95 08/28/18 23:06 98.2 F 84 15 129/73 95 08/28/18 18:53 98.9 F 100 18 133/65 99 08/28/18 18:12 99.0 F 97 16 120/71 08/28/18 17:14 98.2 F 107 19 161/74 95 08/28/18 15:06 98.8 F 101 18 122/60 08/28/18 14:51 98.7 F 98 16 116/62 Intake and Output 08/28/18 08/29/18 08/29/18 23:59 07:59 15:59 Intake Total 590 / 830 1000 / 1480 480 / 1480 Output Total 400 / 400 Balance 590 / 830 1000 / 1080 80 / 1080 Intake: IV Fluids 1000 / 1000 Lactated Ringers 1,000 ML @ 75 1000 / 1000 mls/hr IVC .[id number] [facility] Rx#: [id number] Oral 240 / 480 480 / 480 Blood Product 350 / 350 Rbcs Leuko Poor As-3 2nd Unit 350 / 350 [id number] Output: Urine 400 / 400 Other: Meal Dinner Breakfast Percent of Meal Consumed 95% 75% # Voids 1 1 Weight 82.3 kg Patient Weight 08/29/18 23:59 Weight 82.3 kg - General Appearance General appearance: Present: well-developed, well-nourished EENT: Present: ATNC, hearing intact, vision intact Neck: Present: supple Respiratory: Present: clear Cardiology: Present: no edema, normal S1, normal S2 Gastrointestinal: Present: normoactive bowel sounds, no tenderness, no guarding Integumentary: Present: no rash, warm and dry Neurologic: Present: alert and oriented x3 Musculoskeletal: Present: no deformities, no erythema Psychiatric: Present: mood/affect appropriate, cooperative - Lab 08/29/18 00:51 08/29/18 06:47 Most recent lab results 08/29/18 08/29/18 06:47 11:59 Calcium 8.7 Urine Creatinine 50 Urine Sodium 44.2 Consult Discharge Plan - Plan Referrals: Madhu Wadsworth MD [Partnered Physician] - Florian Garza MD [Primary Care Provider] - Prescriptions: HYDROcodone BIT/Homatropine [Hycodan] 5 mg PO Q6H PRN 5 Days #20 tablet PRN Reason: Severe Pain
== END 2018-08-29 15:40 | disposition home or self-care (01) ==
LOC: 3NENU → SAMDAY 13:55 → 3NENU 13:55
PROVIDERS: ADMIT Orthopaedic Surgery; ATTEND Orthopaedic Surgery